=== PATIENT | female | born 1990 | race Caucasian/White ===

== ENCOUNTER 2021-10-15 13:26 | Emergency (ER) | payer MEDICAID, SELFPAY ==
--- NOTE | 2021-10-15 13:32 | ED_ITS ---
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 Time Seen by Provider: 10/15/21 13:32 Source: patient Mode of arrival: EMS Limitations: no limitations History of Present Illness complaint: accidental overdose Onset (ago): minute(s) Timing confirmed by: family member Context: Accidental Overdose: wanted to get high Treatments Prior to Arrival: narcan (4mg IN) Related Data Allergies Allergy/AdvReac Type Severity Reaction Status Date / Time latex [LATEX] Allergy Unknown SWELLING Unverified 02/29/20 18:34 Review of Systems Review of Systems: Constitutional : No Fever, No Chills ENT/Mouth : No Ear Pain, No Nasal Congestion, No sore throat Eyes: No Eye Pain, No Swelling, No Redness Cardiovascular : No Chest Pain, No SOB Respiratory : No Cough, No Sputum, No Dyspnea Gastrointestinal : No Nausea, No Vomiting, No Diarrhea, No Hematochezia, No Melena Genitourinary : No Dysuria, No Urinary Frequency, No Hematuria Musculoskeletal : No Myalgias Skin : No Skin Lesions, No rash Neuro : No Weakness, No Numbness, No Paresthesias, No Dizziness, No Headache Psych : noAnxiety, no Depression, no SI/HI All other systems reviewed and are negative [facility] Past Medical History Attestation statement: The following information was validated with the patient. Medical History Opiate use Social History Social History (Updated 10/15/21 @ 13:58 by Jodee Blake DO) Patient Tobacco Use Status: Current someday Tobacco user Substance Use Type: Heroin Patient : No Physical Exam Vital Signs: Vital Signs: Last Vital Signs Temp 97 F 10/15/21 13:34 Pulse 87 10/15/21 13:34 Resp 18 10/15/21 13:34 BP 144/84 H 10/15/21 13:34 Pulse Ox 99 10/15/21 13:34 BMI result Body Mass Index 24.5 Appearance: Alert. Oriented X3. No acute distress. Eyes: Pupils equal, round and reactive to light. ENT: Pharynx normal. Neck: Normal inspection. Neck supple. CVS: Normal heart rate and rhythm. Pulses normal. Respiratory: No respiratory distress. Breath sounds normal. Abdomen: Soft and nontender. Skin: Skin warm and dry. Normal skin color. Normal skin turgor. Extremities: No lower extremity edema. No calf ttp Neuro: Oriented X 3. No motor deficit. No sensory deficit. no SI Course Course Course Narrative: eloped from ED with family member MDM - Overdose MDM Narrative Medical decision making narrative: 30 yo female with hx of opiate use disorder reports she had been clean but slipped up due to life stress. No SI, carries narcan. Does not want recovery coaches - one did come to the bedside but she is refusing help. She does not want SUDE evaluation. refuses suboxone and narcan will obs until 3 and DC - she may try to leave before then Discharge Plan Discharge Clinical Impression: Opiate overdose Patient Disposition: Elopement Instructions: Opioid Use Disorder (ED) Additional Instructions: return to ED for any worsening symptoms or concerns carry narcan with you if you need help with suboxone/methadone or detox we are here to help you
[2021-10-15 13:33] VITALS: BP 152/105; PULSE 107; O2SAT 100
[2021-10-15 13:34] VITALS: BP 144/84; PULSE 87; RESP 18; TEMP 36.1; O2SAT 99; BMI 24.5
--- NOTE | 2021-10-15 13:43 | MHC.RECOVSUP ---
? Reason for consult:Recovery Support o Current location:ED 22 o Identified substance use concern: Heroin - Overdose l - Support ? Intervention: o Community resources provided o Harm reduction discussion ? Plan: o Referral to [facility] o Patient to follow up with [facility] after discharge ? Additional information:Patient refuses detox, patient given community resources and referred to the [facility] and [facility].
--- NOTE | 2021-10-15 15:22 | PC.NURSE ---
late entry 1400- pt awake, alert and oriented x 3. skin warm and dry resp unlabored. denies n/v speaking in full clear sentences. evaluated by assistant men's lacrosse coach and MD plan is to dc home at 3pm. family member at bedside. denies si/hi at 1421 hospital gown on bed, patient not on stretcher. security reports patient left with family member.
== END 2021-10-15 14:21 | disposition left against medical advice (07) ==
LOC: HO.ED 14:22
PROVIDERS: Emergency Provider Emergency Medicine
DX: T40.1X1A Poisoning by heroin, accidental (unintentional), initial encounter (principal); Y92.9 Unspecified place or not applicable
CPT/HCPCS: 99282

== ENCOUNTER 2024-07-04 21:45 | Emergency (ER) | payer MEDICAID, SELFPAY ==
[2024-07-04 22:04] VITALS: BP 118/65; PULSE 74; RESP 16; TEMP 36.7; O2SAT 99; BMI 35.0
[2024-07-04 22:51] LABS: Amphetamine Screen Urine Not Detected (Not Detect); Barbiturates, Urine Not Detected (Not Detect); Benzodiazepines Screen Urine Not Detected (Not Detect); Buprenorphine Scr Not Detected (Not Detect); Cannabinoid Screen Urine Not Detected (Not Detect); Cocaine Screen Urine Not Detected (Not Detect); Fentanyl, urine Not Detected (Not Detect); Methadone Screen, Urine Not Detected (Not Detect); Opiate Screen Urine Not Detected (Not Detect); Oxycodone Screen Urine Not Detected (Not Detect); Phencyclidine Screen Urine Not Detected (Not Detect)
[2024-07-04 22:57] LABS: Ethanol < 10 mg/dL
--- NOTE | 2024-07-04 22:57 | ED.MEDCLEAR ---
HPI - Medical Clearance General Chief complaint: Medical Clearance Stated complaint: Medical clearance Time Seen by Provider: 07/04/24 22:34 Source: patient Mode of arrival: ambulatory Limitations: no limitations History of Present Illness ED Provider: Maritza Palmer NP HPI Narrative: Patient is a 33-year-old female presents emergency department for evaluation. Reports she is currently residing in a sober living home. She states that she has to call to check in every 4 hours. She states that she did this throughout today but she missed her last check in. They therefore requested that she come to the emergency department to seek medical clearance including drug and alcohol screening. She denies any recreational drug or alcohol usage. She offers no physical complaints at this time Related Information Allergies Allergy/AdvReac Type Severity Reaction Status Date / Time latex [LATEX] Allergy Unknown SWELLING Verified 07/04/24 22:05 Review of Systems Review of Systems: Yes all other systems are reviewed and are negative [facility] Past Medical History Attestation statement: The following information was validated with the patient. Source: old records reviewed Medical History Opiate use Social History Social History Patient Tobacco Use Status: Current someday Tobacco user Use of substances other than those prescribed or required for medical reasons: No Substance Use Type: Heroin Do you have a plan to hurt others: No Plan Physical Exam Vital Signs: Vital Signs: Last Vital Signs Temp 98.1 F 07/04/24 22:04 Pulse 74 07/04/24 22:04 Resp 16 07/04/24 22:04 BP 118/65 07/04/24 22:04 Pulse Ox 99 07/04/24 22:04 O2 Del Method Room Air 07/04/24 22:04 BMI result Body Mass Index 35.0 Appearance: Alert.?Oriented to person, place and time. No acute distress.?Normal affect. Eyes: Pupils equal, round and reactive to light.?? CVS: Heart sounds normal. Normal heart rate and rhythm.? Pulses normal.?? Respiratory: No respiratory distress.? Lung sounds clear to auscultation bilaterally??? Skin: Skin warm and dry.? Normal skin color.? Neuro: Moves all extremities spontaneously. Ambulates with normal steady gait. Medical Decision Making Medical Decision Making [facility] Narrative: Patient is a 33-year-old female with history of substance use disorder presenting to emergency department for evaluation requesting medical clearance. She denies any recreational drug or alcohol usage. She is calm and cooperative, does not appear under the influence. Testing was obtained ethyl alcohol level is nondetectable, drug abuse screen is negative. At this time I feel that she is cleared for discharge back to her sober living facility. She offers no physical complaints in her physical examination is benign. Differential Diagnosis Differential Diagnoses: The differential diagnosis associated with the presentation includes (See narrative above) Lab Data [facility] Lab Attestation statement: I reviewed the patient's lab results. (See narrative above) Labs: Lab Results 07/04/24 Range/Units 22:22 Urine Opiates Screen Not Detected (Not Detect) Ur Buprenorphine Scrn Not Detected (Not Detect) ng/mL Ur Oxycodone Screen Not Detected (Not Detect) ng/mL Urine Methadone Screen Not Detected (Not Detect) ng/mL Urine Fentanyl Screen Not Detected (Not Detect) Ur Barbiturates Screen Not Detected (Not Detect) Ur Phencyclidine Scrn Not Detected (Not Detect) Ur Amphetamines Screen Not Detected (Not Detect) U Benzodiazepines Scrn Not Detected (Not Detect) Urine Cocaine Screen Not Detected (Not Detect) U Marijuana (THC) Screen Not Detected (Not Detect) Ethyl Alcohol < 10 mg/dL External Record Review External record reviewed: Outpatient record Social Determinants Patient?s care significantly limited by Social Determinants of Health including: Alcoholism and drug addiction in family Discharge Plan Discharge Clinical Impression: History of substance use Patient Disposition: Home, Self-Care Additional Instructions: You were evaluated in the emergency department today for medical clearance to return back to your sober living home. You had testing performed in the emergency department including a blood alcohol level which was nondetectable and a urine drug of abuse screen which was negative. You may return back to your sober living facility, please contact them as you would have previously been instructed. You may return to emergency department at any time with any symptoms or concerns. Print Language: Brazilian
--- NOTE | 2024-07-04 23:06 | PC.NURSE ---
Eval by PA in triage, cleared for dc home.
[2024-07-04 23:27] VITALS: BP 118/65; PULSE 74; RESP 16; TEMP 36.7; O2SAT 99
== END 2024-07-04 23:28 | disposition home or self-care (01) ==
LOC: HO.ED 23:25
PROVIDERS: Emergency Provider Emergency Medicine
DX: Z51.81 Encounter for therapeutic drug level monitoring (principal); Z02.79 Encounter for issue of other medical certificate; F17.210 Nicotine dependence, cigarettes, uncomplicated; Z79.899 Other long term (current) drug therapy
CPT/HCPCS: 36415; 80307; 99283